=== PATIENT | female | born 1985 | race Hispanic/Latino ===

== ENCOUNTER 2020-07-08 17:23 | Emergency (ER) | payer MEDICARE, OTHER ==
[2020-07-08] MEDS ORDERED: HYDROcodone/Acetaminophen 5/325 mg Tablet ONE (20:23)
== END 2020-07-08 21:11 | disposition home or self-care (01) ==
LOC: ERS 17:23
DX: K02.9 Dental caries, unspecified (principal)
CPT/HCPCS: 99283

== ENCOUNTER 2020-11-03 21:18 | Emergency (ER) | payer MEDICARE, OTHER | END 2020-11-03 22:14 | disposition home or self-care (01) | LOC: ERS 21:18 | DX: M79.644 Pain in right finger(s) (principal) ==

== ENCOUNTER 2021-02-03 19:10 | Emergency (ER) | payer MEDICARE, OTHER ==
[2021-02-03] MEDS ORDERED: Ketorolac Tromethamine 30 MG/ML VIAL ONE (20:22)
[2021-02-03] MEDS ORDERED: Amoxicillin/Potassium Clav 875 MG TAB ONE (20:29)
[2021-02-03 22:11] LABS: SARS-CoV-2 NAA Rapid Test DETECTED (NotDetected)
== END 2021-02-03 22:03 | disposition home or self-care (01) ==
LOC: ERS 19:10
DX: U07.1 COVID-19 (principal); H66.93 Otitis media, unspecified, bilateral
CPT/HCPCS: 0240U; 96372; 99284; J1885

== ENCOUNTER 2021-05-01 09:24 | Emergency (ER) | payer MEDICARE, OTHER, SELFPAY ==
[2021-05-01] MEDS ORDERED: Lidocaine 1% (PF) 30 ML VIAL ONE (09:51)
[2021-05-01] MEDS ORDERED: Lidocaine 1% w/Epinephrine 1:100K 20 ML VIAL ONE (10:02)
[2021-05-01] MEDS ORDERED: Boostrix 0.5 ML (Tdap) VIAL ONE (11:29)
== END 2021-05-01 11:40 | disposition home or self-care (01) ==
LOC: ERS 09:24
DX: S01.81XA Laceration without foreign body of other part of head, initial encounter (principal); Z23 Encounter for immunization; W22.8XXA Striking against or struck by other objects, initial encounter
CPT/HCPCS: 12011; 90471; 90715; J2001

== ENCOUNTER 2021-05-06 20:21 | Emergency (ER) | payer OTHER ==
[2021-05-06] MEDS ORDERED: Bacitracin 1 PK ONE (21:27)
== END 2021-05-06 21:39 | disposition home or self-care (01) ==
LOC: ERS 20:21
DX: S01.81XD Laceration without foreign body of other part of head, subsequent encounter (principal); W01.198D Fall on same level from slipping, tripping and stumbling with subsequent striking against other object, subsequent encounter